=== PATIENT | female | born 1950 | race Caucasian/White ===

== ENCOUNTER → 2022-03-04 | Day surgery (SDC) | payer OTHER ==
[~2022-03-04] VITALS: Ht 170.2 cm; Wt 93.9 kg
[~2022-03-04] MED LIST: ACETAMINOPHEN 325MG TABLET PO PRN; CLOP75TA33 PO; EZET-82; FENTANYL CITRATE/PF 50MCG/ML 2ML VIAL ONE; HEPARIN 1000 UNITS/ML 10ML ONE; IODIXANOL 320MG/ML 100 ML BOTTLE IV ONE; LIDOCAINE HCL/PF 2% 20MG/ML 5 ML/VIAL ONE; METF-874 MT; MIDAZOLAM HCL 2 MG/2 ML VIAL ONE; MONT-39 PO; MORPHINE SULFATE 2 MG/ML CPJ (NOT FOR IM USE) IV PRN; ONDANSETRON HCL 4MG/2ML INJ IV PRN; VALS1TAB75 PO
== END | disposition home or self-care (01) ==
LOC: CCL 06:43
PROVIDERS: ATTEND Internal Medicine Cardiovascular Disease
DX: R94.39 Abnormal result of other cardiovascular function study (principal); R07.9 Chest pain, unspecified; I10 Essential (primary) hypertension; E78.49 Other hyperlipidemia; E11.9 Type 2 diabetes mellitus without complications; Z79.84 Long term (current) use of oral hypoglycemic drugs; Z79.899 Other long term (current) drug therapy; Z98.890 Other specified postprocedural states
CPT/HCPCS: 93458; C1760; C1769; C1887; C1893; J1644; J2250; J3010; J3490; Q9967